=== PATIENT | male | born 1960 | race Hispanic/Latino ===

== ENCOUNTER → 2021-09-30 | Day surgery (SDC) | payer OTHER ==
[~2021-09-30] MED LIST: ALLOPURINOL100 MG PO; ATENOLOL50 MG PO; CEFTRIAXONE 1 GM VIAL ONE; IOPAMIDOL 610MG/1ML 300 MG/ML VIAL IV ONE; LOSARTAN POTASS25 MG PO; METFORMIN HCL500 M1 PO; PRAVASTATIN SOD20 MG PO; VITAMIN D250 MC1 PO
[2021-09-30 08:29] LABS: ANION GAP 12.7 mmol/L (8-16); CALCIUM 8.6 mg/dL (8.4-10.2); CREATININE, SERUM 0.77 mg/dL (0.72-1.25); POTASSIUM 3.7 mmol/L (3.5-5.1)
[2021-09-30 09:20] VITALS: BP 130/88
== END | disposition home or self-care (01) ==
LOC: OR 06:27
PROVIDERS: ATTEND Urology
DX: N35.912 Unspecified bulbous urethral stricture, male (principal); R31.29 Other microscopic hematuria; N32.89 Other specified disorders of bladder; N40.1 Benign prostatic hyperplasia with lower urinary tract symptoms; R39.14 Feeling of incomplete bladder emptying; R35.1 Nocturia; N39.0 Urinary tract infection, site not specified; N43.3 Hydrocele, unspecified; I86.1 Scrotal varices; E66.01 Morbid (severe) obesity due to excess calories; E11.9 Type 2 diabetes mellitus without complications; M10.9 Gout, unspecified; K76.0 Fatty (change of) liver, not elsewhere classified; I10 Essential (primary) hypertension; E78.5 Hyperlipidemia, unspecified; Z01.810 Encounter for preprocedural cardiovascular examination; Z79.84 Long term (current) use of oral hypoglycemic drugs; Z79.899 Other long term (current) drug therapy; Z68.31 Body mass index [BMI] 31.0-31.9, adult; Z86.16 Personal history of COVID-19
CPT/HCPCS: 36415; 74420; 80048; 82948; 93005; C1758; C1769; J0696